=== PATIENT | female | born 1970 | race Caucasian/White ===

== ENCOUNTER 2022-11-11 14:04 | Emergency (ER) | payer BC ==
[2022-11-11 14:43] VITALS: RESP 18; BMI 30.7
[2022-11-11] MEDS ORDERED: ACETAMINOPHEN 500 MG TABLET (FP) PO ONE (17:03)
[2022-11-11 17:13] VITALS: BP 137/79; PULSE 63; TEMP 97.3
[2022-11-11] MEDS ORDERED: ACETAMINOPHEN 325 MG TABLET (FP) ONE (17:34)
[2022-11-11] MEDS ORDERED: METHOCARBAMOL 500 MG TABLET PO ONE (18:24)
[2022-11-11] MEDS ORDERED: KETOROLAC TROMETHAMINE 30 MG/1 ML VIAL IM ONE (18:24)
[2022-11-11] MEDS ORDERED: LIDOCAINE 5% TOPICAL PATCH TP ONE (18:24)
[2022-11-11] MEDS ORDERED: LIDOCAINE 5% TOPICAL PATCH ONE (18:39)
[2022-11-11] MEDS ORDERED: KETOROLAC TROMETHAMINE 30 MG/1 ML VIAL ONE (18:39)
[2022-11-11] MEDS ORDERED: METHOCARBAMOL 500 MG TABLET ONE (18:39)
[2022-11-11] MEDS ORDERED: LIDOCAINE PATCH REMOVAL MC SCH (22:00)
== END 2022-11-11 20:50 | disposition home or self-care (01) ==
LOC: JER 14:04
PROC: 3E0233Z Introduction of Anti-inflammatory into Muscle, Percutaneous Approach (ICD-10-PCS; principal; 2022-11-11)
DX: S09.90XA Unspecified injury of head, initial encounter (principal); S00.83XA Contusion of other part of head, initial encounter; M25.561 Pain in right knee; M25.562 Pain in left knee; W51.XXXA Accidental striking against or bumped into by another person, initial encounter; W18.30XA Fall on same level, unspecified, initial encounter; Y93.01 Activity, walking, marching and hiking; Y99.0 Civilian activity done for income or pay
CPT/HCPCS: 70450-TC; 70486-TC; 72128-TC; 72131-TC; 73560-TC-LT-FY; 73560-TC-RT-FY; 93005; 93010; 99285-25